=== PATIENT | male | born 1950 ===

== ENCOUNTER 2024-07-31 15:37 | Inpatient (IN) | payer MEDICARE, OTHER ==
[~2024-07-31] VITALS: Ht 188 cm; Wt 75.0 kg
[2024-07-31 18:53] VITALS: BP 142/65
--- NOTE | 2024-07-31 18:53 | NUR ---
ARRIVAL TO PCU patient arrived at 1800 as a direct admit. vital signs stable. tele sinus rhythm 60s. this rn to admit to get information and admit into the system. Md Turner notified of patient arrival. no orders at this time. admit not complete due to not getting in the system and this rn unable to do a full admit, will pass along to maintenance technician 2nd shift. paper work for admit complete and at charge desk.
[2024-07-31] MEDS ORDERED: ChlordiazePOXIDE 25 MG Cap PO PRN (19:30)
[2024-07-31] MEDS ORDERED: NS 1,000 ML IV SCH (19:30)
[2024-07-31] MEDS ORDERED: OxyCODONE 5 mg/Acetamin 325 mg TABLET PO PRN (19:35)
[2024-07-31] MEDS ORDERED: Ondansetron HCl 2 MG / ML 2ML Vial IV PRN (19:35)
[2024-07-31 20:04] LABS: Base Excess Venous -0.7 mmol/L; PCO2 Venous 36.2 mmHg (38-42); pH Blood Venous 7.42 (7.34-7.37)
[2024-07-31 20:14] LABS: BASOPHILS ABSOLUTE AUTO 0.01 K/mm3 (0.00-0.23); BASOPHILS PERCENT AUTO 0 % (0-2); EOSINOPHILS PERCENT AUTO 0 % (0-6); Hematocrit 40.2 % (37.0-53.0); Hemoglobin 13.5 g/dL (13.5-17.5); IMMATURE GRAN ABSOLUTE AUTO 0.03 K/mm3 (0.00-0.10); IMMATURE GRAN PERCENT AUTO 0 % (0-1); LYMPHOCYTES ABSOLUTE AUTO 0.33 K/mm3 (0.84-5.20); LYMPHOCYTES PERCENT AUTO 4 % (21-46); MONOCYTES ABSOLUTE AUTO 0.39 K/mm3 (0.16-1.47); MONOCYTES PERCENT AUTO 5 % (4-13); Mean Corpuscular HGB 35.5 pg (26.0-34.0); Mean Corpuscular HGB Conc 33.6 g/dL (31.5-36.5); Mean Corpuscular Volume 106 fL (80-100); Mean Platelet Volume 10.2 fL (9.1-12.4); NEUTROPHILS ABSOLUTE AUTO 7.98 K/mm3 (1.96-9.15); NEUTROPHILS PERCENT AUTO 91 % (41-73); Platelet Count 129 K/mm3 (150-400); RDW Coefficient Variation 14.1 % (11.7-14.2); RDW Standard Deviation 55.3 fL (35.1-46.3); White Blood Cell Count 8.74 K/mm3 (4.00-11.30)
[2024-07-31 20:42] LABS: Albumin, Blood 1.7 g/dL (3.4-5.0); Albumin/Globulin Ratio 0.3 (0.8-1.8); Bilirubin, Total 0.5 mg/dL (0.1-1.0); Bun/Creatinine Ratio 20.2 (12.0-20.0); Calcium, Blood 8.6 mg/dL (8.5-10.1); Creatinine, Blood 0.89 mg/dL (0.60-1.20); Globulin, Blood 5.3 g/dL (2.2-4.0); Magnesium, Blood 2.3 mg/dL (1.6-2.4); Potassium, Blood 3.6 mmol/L (3.5-5.5)
[2024-07-31] MEDS ORDERED: Docusate Sodium 100 MG Cap PO SCH (21:00)
[2024-07-31] MEDS ORDERED: Lactobacil 2-S.Thermo-Bifido 1 1 Cap PO SCH (21:00)
[2024-07-31 21:08] VITALS: BP 127/65
[2024-08-01] VITALS (7 sets, daily range): BP systolic 92–129; BP diastolic 49–67
[2024-08-01] MEDS ORDERED: Piperacillin/Tazobactam Sod 3.375 GM in NS 100 ML IV SCH
[2024-08-01] MEDS ORDERED: Vancomycin HCL 750 MG in NS 250 ML IV SCH (02:00)
--- NOTE | 2024-08-01 05:28 | NUR ---
SHIFT [place] PT WAS JUST ARRIVING DURING SHIFT CHANGE. DOCTOR IN ROOM DURING NURSE HANDOFF. 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 PTs VSS. ON 2-8L HIFLNC. PT HAS COUGHING FITS AT TIMES THAT TAKE HIM TIME TO RECOVER FROM REQUIRING MORE OXYGEN. PT HAS CRACKLES UPON ASSESSMENT. RT NOTIFIED AND AT BEDSIDE TO ALSO ASSESS PT. CXR COMPLETE DURING SHIFT. VBGs COMPLETE. PTs R FOOT REDRESSED, PICTURES IN CHART. CURRENTLY NWB TO RLE. ON BED REST AT THIS TIME. USING BED DANIELS FOR 1BM. PT ARRIVED WITH BURNS. MINIMAL YELLOW OUTPUT. NO FURTHER QUESTIONS OR CONCERNS AT THIS TIME. WILL CONTINUE WITH PLAN OF CARE AND REPORT TO ONCOMING NURSE.
[2024-08-01] MEDS ORDERED: Thiamine HCl 100 MG Tab PO SCH (09:00)
[2024-08-01] MEDS ORDERED: Folic Acid 1 MG TAB PO SCH (09:00)
[2024-08-01] MEDS ORDERED: Multivitamins 1 Tab PO SCH (09:00)
[2024-08-01] MEDS ORDERED: Rivaroxaban 10 MG Tab PO SCH (09:00)
[2024-08-01] MEDS ORDERED: Fluticasone 0.05% Nasal Spray SCH (10:00)
[2024-08-01 13:50] LABS: Vancomycin, Trough 22.3 ug/mL (5.0-10.0)
[2024-08-01] MEDS ORDERED: Vancomycin HCL 1,000 MG in NS 250 ML IV SCH (20:00)
[2024-08-02 03:10] VITALS: BP 106/58
[2024-08-02 04:44] LABS: BASOPHILS ABSOLUTE AUTO 0.02 K/mm3 (0.00-0.23); BASOPHILS PERCENT AUTO 0 % (0-2); EOSINOPHILS ABSOLUTE AUTO 0.01 K/mm3 (0.00-0.68); EOSINOPHILS PERCENT AUTO 0 % (0-6); Hematocrit 34.5 % (37.0-53.0); Hemoglobin 11.8 g/dL (13.5-17.5); IMMATURE GRAN ABSOLUTE AUTO 0.06 K/mm3 (0.00-0.10); IMMATURE GRAN PERCENT AUTO 1 % (0-1); LYMPHOCYTES PERCENT AUTO 4 % (21-46); MONOCYTES ABSOLUTE AUTO 0.93 K/mm3 (0.16-1.47); MONOCYTES PERCENT AUTO 7 % (4-13); Mean Corpuscular HGB Conc 34.2 g/dL (31.5-36.5); Mean Corpuscular Volume 105 fL (80-100); NEUTROPHILS ABSOLUTE AUTO 11.66 K/mm3 (1.96-9.15); NEUTROPHILS PERCENT AUTO 88 % (41-73); Platelet Count 147 K/mm3 (150-400); RDW Coefficient Variation 14.1 % (11.7-14.2); RDW Standard Deviation 55.4 fL (35.1-46.3); Red Blood Cell Count 3.28 M/mm3 (4.30-5.90); White Blood Cell Count 13.18 K/mm3 (4.00-11.30)
[2024-08-02 05:03] LABS: Bun/Creatinine Ratio 20.9 (12.0-20.0); Calcium, Blood 8.5 mg/dL (8.5-10.1); Creatinine, Blood 0.86 mg/dL (0.60-1.20); Potassium, Blood 3.3 mmol/L (3.5-5.5)
--- NOTE | 2024-08-02 05:28 | NUR ---
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 CONTINUOUS SPO2, SPO2,GREATER THAN 90% ON 7L O2 VIA NC THE MAJORITY OF THE SHIFT, PT NEEDING FREQUENT TIRATION OF O2 TO MAINTAIN SATURATIONS OF GREATER THAN 90%, HIGHEST TITRATION 10 L AND LOWEST 3L. PT COUGHING UP THICK MUCUS/PT GIVEN YANKAUER. CONTINUOUS TELE MONITORING, BP STABLE WITH MAP GREATER THAN 65, CAP REFILL LESS THAN 3S, STRONG PULSES T/O, PT IN SINUS T/O THE NIGHT WITH PAC S 50-70 S RATE, MILD BLE EDEMA. BOWEL TONES PRESENT IN ALL 4Q, ABD SOFT AND NON-TENDER, SMALL INCONTINET SMEARS THAT WERE BROWN IN COLOR. PT REPORTING DIFFICULTY URINATING, PT HAVING INCONTINENT EPISODES THIS SHIFT. RIGHT FOOT DRESSING C/D/I, SEE PHOTOS IN CHART. PT DENES PAIN T/O THIS SHIFT, THIS RN DID NOT NOTICE ANY NON-VERBAL SIGNS OF PAIN. BED LOWEST POSITION, CALL LIGHT IN REACH, AWAITING TO GIVE REPORT TO ONCOMING RN.
[2024-08-02 07:37] VITALS: BP 109/56
[2024-08-02] MEDS ORDERED: Potassium Chloride 20 MEQ TabCR PO ONE (09:00)
--- NOTE | 2024-08-02 10:44 | NUR ---
am note this rn assumed care at 0700. vital signs stable. spo2 >90% on 4-8l nc, patient currently on 8l nc. patient is alert and oriented x4. perrla. patient is able to make needs known and uses call light appropriately. denies pain, chest pain/pressure. patient reports shortness of breath. lung sounds are coarse throughout and respirations in the 30s. patient gi/gu intact. 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 dressing changed this shift. see shift assessmen for further detials. Md Altamirano in to see patient this morning and discussed with Md Altamirano that patient normally has a soft diet and has been coughing when drinking fluids with a straw and that morning medications patient took with applesauce. Speech eval has been ordered and this Rn spoke with speech therapist who will be by today to evaluate patient. Patient has an episode of posible aspiration on drinking soda. patient was drinking from an open lid and began to have a coughing fit afterwards and coughing up dark secretions which match the color of the soda and then clear secretions this rn suctioned out. this rn suctioned patient and encourage patient to continue coughing. this rn called md altamirano to let him know of this episode and patient npo until speech can evaluate.
--- NOTE | 2024-08-02 11:15 | NUR ---
update speech therapist in to work with patient, see speech therapy assessment for further detials. after working with speech plan for patient to be strict NPO including medications. this rn called md altamirano and updated on this information.
[2024-08-02 11:23] VITALS: BP 113/51
[2024-08-02] MEDS ORDERED: Lactated Ringer's 1,000 ML IV SCH (12:00)
--- NOTE | 2024-08-02 12:30 | NUR ---
UPDATE md altamirano updated on respiratory rate and state vbg ordered
[2024-08-02 13:20] LABS: Base Excess Venous 2.6 mmol/L; Bicarbonate Venous 26.5 mmol/L (24.0-30.0)
[2024-08-02 13:21] LABS: PCO2 Venous 37.6 mmHg (38-42); pH Blood Venous 7.46 (7.34-7.37)
--- NOTE | 2024-08-02 13:41 | NUR ---
update this rn spoke with md altamirano in regarding vbg results, no new orders at this time.
[2024-08-02 15:20] VITALS: BP 113/68
[2024-08-02] MEDS ORDERED: Furosemide 10 MG/ML 4ML Vial IV SCH (16:00)
--- NOTE | 2024-08-02 17:32 | NUR ---
shift summary break nurse Reny Griffith RN spoke with MD Banegas in regards to patient lung coleman with crackles and RT recommendation of diuresising patient, orders for fluid to be stopped and lasix given. patient respirations have been tachypnea, rate in the 30s-40s majority of the shift. patient has male purwick in place for better i&os. patient had two bowel movements today that were incontinent. patient had a bed bath done. see previous notes. plan remains up to date.
[2024-08-02 20:31] VITALS: BP 125/62
[2024-08-02 23:28] VITALS: BP 125/58
[2024-08-03] VITALS (7 sets, daily range): BP systolic 131–146; BP diastolic 69–82
--- NOTE | 2024-08-03 06:20 | NUR ---
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 CONTINUOUS SPO2, SPO2,GREATER THAN 90% ON 6L O2 VIA NC THE MAJORITY OF THE SHIFT, RR 20 S WHILE SLEEPING AND 30-40 S WHEN AWAKE/ PT DENIES FEELINGS SOB OR THAT HE IS BREATHING FAST, PT NEEDING FREQUENT TIRATION OF O2 TO MAINTAIN SATURATIONS OF GREATER THAN 90%, HIGHEST TITRATION 10 L AND LOWEST 6L. PT COUGHING UP THICK MUCUS/PT GIVEN YANKAUER. CONTINUOUS TELE MONITORING, BP STABLE WITH MAP GREATER THAN 65, CAP REFILL LESS THAN 3S, STRONG PULSES T/O, PT IN SINUS T/O THE NIGHT WITH PAC S 50-70 S RATE, BLE EDEMA WITH THE RIGHT GREATER THAN THE LEFT. BOWEL TONES PRESENT IN ALL 4Q, ABD SOFT AND NON-TENDER. MALE PUREWICK IN PLACE TO LOW CONTINUOUS SUCTION, URINE PALE YELLOW IN COLOR. RIGHT FOOT DRESSING CHANGED PER ORDERS THIS AM @ APPROX 0440, DRESSING C/D/I. PT DENES PAIN T/O THIS SHIFT, THIS RN DID NOT NOTICE ANY NON-VERBAL SIGNS OF PAIN. BED LOWEST POSITION, CALL LIGHT IN REACH, AWAITING TO GIVE REPORT TO ONCOMING RN.
[2024-08-03 06:58] LABS: BASOPHILS ABSOLUTE AUTO 0.01 K/mm3 (0.00-0.23); BASOPHILS PERCENT AUTO 0 % (0-2); EOSINOPHILS ABSOLUTE AUTO 0.63 K/mm3 (0.00-0.68); EOSINOPHILS PERCENT AUTO 5 % (0-6); Hematocrit 36.4 % (37.0-53.0); Hemoglobin 12.5 g/dL (13.5-17.5); IMMATURE GRAN ABSOLUTE AUTO 0.04 K/mm3 (0.00-0.10); IMMATURE GRAN PERCENT AUTO 0 % (0-1); LYMPHOCYTES ABSOLUTE AUTO 0.63 K/mm3 (0.84-5.20); LYMPHOCYTES PERCENT AUTO 5 % (21-46); MONOCYTES ABSOLUTE AUTO 0.55 K/mm3 (0.16-1.47); MONOCYTES PERCENT AUTO 5 % (4-13); Mean Corpuscular HGB 35.6 pg (26.0-34.0); Mean Corpuscular HGB Conc 34.3 g/dL (31.5-36.5); Mean Corpuscular Volume 104 fL (80-100); Mean Platelet Volume 9.6 fL (9.1-12.4); NEUTROPHILS PERCENT AUTO 84 % (41-73); Platelet Count 111 K/mm3 (150-400); RDW Coefficient Variation 14.2 % (11.7-14.2); RDW Standard Deviation 54.4 fL (35.1-46.3); Red Blood Cell Count 3.51 M/mm3 (4.30-5.90); White Blood Cell Count 11.66 K/mm3 (4.00-11.30)
[2024-08-03 07:24] LABS: Bun/Creatinine Ratio 15.7 (12.0-20.0); Calcium, Blood 8.3 mg/dL (8.5-10.1); Creatinine, Blood 0.83 mg/dL (0.60-1.20); Potassium, Blood 2.8 mmol/L (3.5-5.5)
[2024-08-03 07:26] LABS: Vancomycin, Trough 19.2 ug/mL (5.0-10.0)
[2024-08-03] MEDS ORDERED: NS 250 ML IV PRN (08:25)
--- NOTE | 2024-08-03 08:50 | NUR ---
SPEECH SPEECH IN TO SEE PT. ADVISED TO CONTINUE STRICT NPO, STATED TO RECOMMEND BARIUM SWALLOW STUDY FOR MONDAY, SPEECH NOT AVAILABLE SUNDAYS AND SAME FOR RADIOLOGIST.
[2024-08-03] MEDS ORDERED: Potassium Chloride 40 MEQ in NS 250 ML IV ONE (09:30)
[2024-08-03] MEDS ORDERED: Vancomycin HCL 1,250 MG in NS 250 ML IV SCH (10:00)
[2024-08-03] MEDS ORDERED: Enoxaparin 80 MG/0.8 ML SYR SC SCH ×2 (12:14→23:00)
[2024-08-03 12:58] LABS: Base Excess Venous 10.7 mmol/L; Bicarbonate Venous 33.5 mmol/L (24.0-30.0); PCO2 Venous 38.9 mmHg (38-42)
[2024-08-03 12:59] LABS: pH Blood Venous 7.54 (7.34-7.37)
--- NOTE | 2024-08-03 13:11 | NUR ---
CRITICAL VALUE VBG RESULTS CALLED TO DR MARK, STATED SHE NEEDED MED REC TO BE DONE FOR ANY POSSIBLE MEDS HE COULD BE MISSING. DOC STATED HIS TACHYPNEA MAY BE EXACERBATED BY PAIN, LET DOC KNOW HE IS STRICT NPO PER SPEECH RECOMMENDATIONS. STATED SHE WILL ORDER ONE TIME FENTANYL.
[2024-08-03] MEDS ORDERED: XARELTO20 MG PO (13:29)
[2024-08-03] MEDS ORDERED: OXAYDO5 M3 PO (13:31)
[2024-08-03] MEDS ORDERED: FERSU300 PO (13:31)
[2024-08-03] MEDS ORDERED: FentaNYL Citrate 50 MCG/ML 2 ML Injection IV ONE (14:00)
--- NOTE | 2024-08-03 14:03 | NUR ---
FENTANYL GIVEN IN ATTEMPT TO SLOW BREATHING RATE PER DR MARK. PATIENT CONTINUES TO BREATH 40 RESP/MIN. ABDOMINAL BREATHING, MILD INTERCOSTAL RETRACTIONS NOTED AT THIS TIME.
--- NOTE | 2024-08-03 14:58 | NUR ---
NURSE MONITORING AND ICU NURSE IN ROOM ROUNDING ON PATIENT. BOTH STATED TRANSFER IS NOT APPROPRIATE AT THIS TIME. PATIENT CONTINUES TO BE TACHYPNEIC AT 38 RESP/MIN. WAITING ON CT TO BE DONE.
[2024-08-03] MEDS ORDERED: AcetaZOLAMIDE Sodium 500 MG Vial IV SCH (16:00)
--- NOTE | 2024-08-03 18:11 | NUR ---
SHIFT SUMMARY PATIENT TACHYPNEIC THROUGHOUT SHIFT, EPISODES OF INCREASED WOB AND RETRACTIONS WITH BREATHS. OTHER VSS. CONFUSION INCREASING THROUGHOUT DAY WITH 2 EPISODES OF ATTEMPTING BED EXIT AND PULLING AT LINES, EASILY REDIRECTABLE. CURRENTLY ON 4 LITERS NC, SATING BETWEEN 98-100%. BARRIER CREAM APPLIED TO STEVIE AREA, SEVERAL INCONTINENT BM. USING MALE WICKING SYSTEM, ADEQUATE OUTPUT. NPO FOR ASPIRATION RISK, SEE SPEECH NOTE. SCHEDULED FOR BARIUM SWALLOW STUDY MONDAY. TOLERATING IV ABX WELL. WAITING ON DELIVERY OF DIAMOX. PATIENT IN TRANSPORT CURRENTLY FOR CT PE STUDY.
[2024-08-03] MEDS ORDERED: rOPINIRole HCl 0.25 MG Tab PO SCH (21:00)
[2024-08-04 04:34] VITALS: BP 127/63
[2024-08-04 04:38] LABS: Base Excess Venous 6.3 mmol/L; Bicarbonate Venous 28.7 mmol/L (24.0-30.0); PCO2 Venous 47.7 mmHg (38-42); pH Blood Venous 7.42 (7.34-7.37)
[2024-08-04 04:40] LABS: BASOPHILS ABSOLUTE AUTO 0.01 K/mm3 (0.00-0.23); BASOPHILS PERCENT AUTO 0 % (0-2); EOSINOPHILS ABSOLUTE AUTO 0.66 K/mm3 (0.00-0.68); EOSINOPHILS PERCENT AUTO 6 % (0-6); Hematocrit 38.6 % (37.0-53.0); Hemoglobin 12.8 g/dL (13.5-17.5); IMMATURE GRAN ABSOLUTE AUTO 0.05 K/mm3 (0.00-0.10); IMMATURE GRAN PERCENT AUTO 0 % (0-1); LYMPHOCYTES ABSOLUTE AUTO 0.56 K/mm3 (0.84-5.20); LYMPHOCYTES PERCENT AUTO 5 % (21-46); MONOCYTES ABSOLUTE AUTO 0.45 K/mm3 (0.16-1.47); MONOCYTES PERCENT AUTO 4 % (4-13); Mean Corpuscular HGB 34.9 pg (26.0-34.0); Mean Corpuscular HGB Conc 33.2 g/dL (31.5-36.5); Mean Corpuscular Volume 105 fL (80-100); Mean Platelet Volume 10.4 fL (9.1-12.4); NEUTROPHILS ABSOLUTE AUTO 9.65 K/mm3 (1.96-9.15); NEUTROPHILS PERCENT AUTO 85 % (41-73); Platelet Count 107 K/mm3 (150-400); RDW Coefficient Variation 14.1 % (11.7-14.2); RDW Standard Deviation 55.1 fL (35.1-46.3); Red Blood Cell Count 3.67 M/mm3 (4.30-5.90); White Blood Cell Count 11.38 K/mm3 (4.00-11.30)
[2024-08-04 05:19] LABS: Bun/Creatinine Ratio 14.4 (12.0-20.0); Calcium, Blood 8.7 mg/dL (8.5-10.1); Creatinine, Blood 0.97 mg/dL (0.60-1.20); Free Thyroxine 1.15 ng/dL (0.70-1.60); Potassium, Blood 2.8 mmol/L (3.5-5.5); Thyroid Stimulating Hormone 1.66 uIU/mL (0.360-4.800)
[2024-08-04] MEDS ORDERED: Potassium Chloride 40 MEQ in NS 250 ML IV ONE (06:00)
[2024-08-04] MEDS ORDERED: SPIR25 PO (06:00)
[2024-08-04] MEDS ORDERED: WARF4 PO (06:01)
[2024-08-04] MEDS ORDERED: ENTRESTO 24 MG1 EACH PO (06:01)
[2024-08-04] MEDS ORDERED: ATOR40TA PO (06:01)
[2024-08-04] MEDS ORDERED: FARXIGA10 MG PO (06:03)
[2024-08-04 06:04] LABS: Magnesium, Blood 2.2 mg/dL (1.6-2.4)
[2024-08-04] MEDS ORDERED: OXYC5 PO (06:09)
[2024-08-04] MEDS ORDERED: XARELTO20 MG PO (06:09)
[2024-08-04] MEDS ORDERED: FERSU300 PO (06:10)
--- NOTE | 2024-08-04 06:13 | NUR ---
SHIFT SUMMARY PT A&O X4, PT HAVING INTERMITTENT EPISODES OF CONFUSION BUT STAFF ARE ABLE TO REORIENTED PT / STATING HE HAD TO GO TO THE [facility] STORE AND WAS TRYING TO GET OUT OF BED/ ANOTHER TIME PT THOUGHT HE HAD RED SNEAKER ON AND WAS WANTING THEM OFF, OBEYS COMMANDS, IS SLOW TO RESPOND, VOICE CONTINUES TO BE SOFT AND MUMBLED, PT ANSWERING QUESTIONS APPROPRIATELY, MOVING ALL EXTREMITIES WITH PURPOSE, AMPULATION 07/25 TO THE RIGHT FOOT 2ND AND 3RD METATARSALS/ IS NON-WEIGHT BARING ON THE RIGHT LEG, PT BEEN BED REST ASSITING STAFF WITH ROLLING IN BED FOR Q2 REPOSITING. CONTINUOUS SPO2, SPO2,GREATER THAN 90% ON 2L O2 VIA NC THE MAJORITY OF THE SHIFT, RR 30-40 S/ PT DENIES FEELINGS SOB OR THAT HE IS BREATHING FAST, PT COUGHING UP THICK MUCUS/PT GIVEN YANKAUER. CONTINUOUS TELE MONITORING, BP STABLE WITH MAP GREATER THAN 65, CAP REFILL LESS THAN 3S, STRONG PULSES T/O, PT IN SINUS 80 S, BLE EDEMA WITH THE RIGHT GREATER THAN THE LEFT/LOOKS IMPROVED FROM PREVIOUS SHIFT. BOWEL TONES PRESENT IN ALL 4Q, ABD SOFT AND NON-TENDER, PT HAVING INCONTINMENT BM S. MALE PUREWICK IN PLACE TO LOW CONTINUOUS SUCTION, URINE PALE YELLOW IN COLOR. RIGHT FOOT DRESSING C/D/I. PT DENES PAIN T/O THIS SHIFT, THIS RN DID NOT NOTICE ANY NON-VERBAL SIGNS OF PAIN. BED LOWEST POSITION, CALL LIGHT IN REACH, AWAITING TO GIVE REPORT TO ONCOMING RN.
[2024-08-04 08:03] VITALS: BP 102/70
[2024-08-04] MEDS ORDERED: Potassium Chloride 20 MEQ in NS 90 ML IV ONE (10:00)
[2024-08-04 12:32] VITALS: BP 119/69
[2024-08-04 16:23] VITALS: BP 115/67
[2024-08-04 16:23] LABS: Bun/Creatinine Ratio 14.8 (12.0-20.0); Calcium, Blood 8.4 mg/dL (8.5-10.1); Creatinine, Blood 1.15 mg/dL (0.60-1.20); Potassium, Blood 3.4 mmol/L (3.5-5.5)
--- NOTE | 2024-08-04 17:51 | NUR ---
PT AOX3-4 WITH INTERMITTNET EPISODES OF CONFUSION. HE IS COOPERATIVE AND CALM. HE TRIED TO GET OUT OF BED A COUPLE OF TIMES BUT WAS EASILY REORIENTED AND REDIRECTED TO STAY IN BED. WHILE IN BED HE WAS ADJUSTED BY STAFF EVERY 2 HOURS TO OFFLOAD ANY PRESSURE. HE IS ABLE TO COMMUNICATE VERBALLY BUT HIS VOICE IS SOFT AND WORDS ARE MUMBLED. HE ANSWERS QUESTIONS APPROPRIATELY, HE IS ABLE TO MOVE ALL EXTREMEITIES IN THE BED AND APPEARS TO BE VERY WEAK. HE IS ON CONTINUOUS PULSE OX ON 2L MAINTAING O2 SATS GREATER THAN 90%. THE SALES CLERK FOOD CAME BY AND THOUGHT THE PATIENT MAY HAVE SLEEP APNEA SO HE ORDERED A CPAP DENIES PAIN AND DENIES SOB. RR RANGED FROM 24 TO 28 BREATHS PER MINUTE FOR THE MOST OF THE SHIFT. HIS LUNG SOUNDS ARE CLEAR IN THE UPPER LOBES WITH SOME CRACKLES AND EXPIRATORY WHEEZE IN THE LOWER LOBES. HE HAD POSITIVE BOWEL SOUNDS AND HAD A SMALL SOFT BM TODAY. PT IN SINUS. PUREWICK IN PLACE. RIGHT FOOT DRESSING CHANGED.
[2024-08-04 18:20] LABS: Adenovirus Not Detected (NOT DETECT); Bordetella pertussis Not Detected (NOT DETECT); Chlamydophila pneumoniae Not Detected (NOT DETECT); Coronavirus 229E Not Detected (NOT DETECT); Coronavirus HKU1 Not Detected (NOT DETECT); Coronavirus NL63 Not Detected (NOT DETECT); Coronavirus OC43 Not Detected (NOT DETECT); Human Metapneumovirus Not Detected (NOT DETECT); Human Rhinovirus/Enterovirus Not Detected (NOT DETECT); Influenza A/2009-H1 Not Detected (NOT DETECT); Influenza A/H1 Not Detected (NOT DETECT); Influenza A/H3 Not Detected (NOT DETECT); Influenza B Not Detected (NOT DETECT); Mycoplasma pneumoniae Not Detected (NOT DETECT); Parainfluenza Virus 1 Not Detected (NOT DETECT); Parainfluenza Virus 2 Not Detected (NOT DETECT); Parainfluenza Virus 3 Not Detected (NOT DETECT); Parainfluenza Virus 4 Not Detected (NOT DETECT); Respiratory Syncytial Virus Not Detected (NOT DETECT); SARS-Cov-2 (COVID-19), BioFire Not Detected (NOT DETECT)
--- NOTE | 2024-08-04 19:55 | NUR ---
ASSUMPTION OF CARE ASSUMED PT'S CARE AT 1900,BEDSIDE REPORT COMPLETED.PT APPEARS TO BE SLEEPING,OPENS EYES TO VERBAL COMMAND.CURRENTLY USING THE BIPAP,NO S/S OF RESPIRATORY DISTRESS NOTED.PT DENIES PAIN.PLAN OF CARE REVIEWED.CALL LIGHT AND PT'S ITEMS WITHIN REACH.WILL CONTINUE TO MONITOR.
[2024-08-04 20:08] VITALS: BP 128/66
[2024-08-05 00:11] VITALS: BP 112/81
[2024-08-05 03:36] VITALS: BP 131/59
--- NOTE | 2024-08-05 06:32 | NUR ---
SHIFT SUMMARY PT WAS SWITCHED TO THE BIPAP AT 2100.PT KEPT TAKING THE BIPAP OFF,REQUIRED CONSTANT REMINDER TO KEEP THE BIPAP ON.PT DESATURATE EASILY TO 83% ON RA.CONTINUES TO BE TACHYPNEIC 27-35BPM.PT WIDE AWAKE THIS MORNING AND MENTATION IMPROVED.PT VOICING NEEDS THIS MORNING,STATES THAT HE IS HUNGRY AND NEEDS SOME FOOD.EXPLAINED TO PT THAT HE FAILED THE SWALLOW STUDY AND THAT HE NEEDS FURTHER TESTING TO DETERMINE THE CORRECT CONSISTENCY OF FOOD THAT HE CAN TOLERATE WITHOUT THE RISK OF ASPIRATION.PT REQUESTED THIS AM TO BE SWITCHED TO THE NC.PLACED ON 2L,OXYGEN SATURATION 96%.PT DENIES PAIN,DENIES SOB,DENIES FURTHER NEEDS AT THIS TIME.CALL LIGHT AND PT'S ITEMS WITHIN REACH.WILL GIVE REPORT TO DAYSHIFT NURSE FOR CONTINUITY OF CARE.
[2024-08-05 07:52] VITALS: BP 103/48
[2024-08-05 09:46] LABS: BASOPHILS ABSOLUTE AUTO 0.02 K/mm3 (0.00-0.23); BASOPHILS PERCENT AUTO 0 % (0-2); EOSINOPHILS PERCENT AUTO 6 % (0-6); Hematocrit 39.7 % (37.0-53.0); IMMATURE GRAN ABSOLUTE AUTO 0.04 K/mm3 (0.00-0.10); IMMATURE GRAN PERCENT AUTO 0 % (0-1); LYMPHOCYTES ABSOLUTE AUTO 0.55 K/mm3 (0.84-5.20); LYMPHOCYTES PERCENT AUTO 5 % (21-46); MONOCYTES ABSOLUTE AUTO 0.46 K/mm3 (0.16-1.47); MONOCYTES PERCENT AUTO 5 % (4-13); Mean Corpuscular HGB 34.9 pg (26.0-34.0); Mean Corpuscular HGB Conc 32.7 g/dL (31.5-36.5); Mean Corpuscular Volume 107 fL (80-100); Mean Platelet Volume 9.9 fL (9.1-12.4); NEUTROPHILS ABSOLUTE AUTO 8.64 K/mm3 (1.96-9.15); NEUTROPHILS PERCENT AUTO 84 % (41-73); Platelet Count 158 K/mm3 (150-400); RDW Coefficient Variation 14.1 % (11.7-14.2); RDW Standard Deviation 55.8 fL (35.1-46.3); Red Blood Cell Count 3.72 M/mm3 (4.30-5.90); White Blood Cell Count 10.31 K/mm3 (4.00-11.30)
[2024-08-05 10:07] LABS: Albumin, Blood 2.1 g/dL (3.4-5.0); Albumin/Globulin Ratio 0.4 (0.8-1.8); Bilirubin, Total 0.7 mg/dL (0.1-1.0); Bun/Creatinine Ratio 17.8 (12.0-20.0); Calcium, Blood 8.8 mg/dL (8.5-10.1); Creatinine, Blood 1.07 mg/dL (0.60-1.20); Potassium, Blood 3.1 mmol/L (3.5-5.5); Total Protein, Blood 7.1 g/dL (6.4-8.2)
[2024-08-05 10:14] LABS: Vancomycin, Trough 20.8 ug/mL (5.0-10.0)
[2024-08-05] MEDS ORDERED: Vancomycin HCL 1,000 MG in NS 250 ML IV SCH (11:00)
[2024-08-05 11:36] VITALS: BP 122/65
[2024-08-05] MEDS ORDERED: Dextrose 5% 1,000 ML IV SCH ×2 (13:20→18:30)
[2024-08-05] MEDS ORDERED: AcetaZOLAMIDE Sodium 500 MG Vial IV ONE (14:00)
[2024-08-05 16:16] VITALS: BP 140/70
--- NOTE | 2024-08-05 17:40 | NUR ---
SHIFT SUMMARY; ASSUMED CARE AT 0700. A/A/OX2-3. PARTICIPATES MINIMALLY IN CARE. SLEEPS MOST OF DAY. BARIUM SWALLOW STUDY COMPLETED, PEG TUBE RECOMMENED, PT DECLINES, PALLATIVE CARE UPDATED. 02 INCREASED IN AM TO MAINTAIN SATS >90% TO 6L. LASIX GIVEN PER ORDERS, 02 SATS IMPROVED AND 02 DECREASED TO [address]L [address]. PUGA. D5 AT 75ML, BP STABLE. LARGE OPEN SORE NOTED TO RIGHT HEEL. DR. MARK TO ROOM EVALUATE, PHOTO TAKEN AND PLACED IN CHART. MEPILEX PLACED PER VERBAL ORDER, ABD AND KERLEX DRESSING TO RIGHT FOOT SURGICAL SITE, BRITNEY IN PLACE, INCISION DRY AND NON ODOROUS. CT SCAN DURING SHIFT TODAY. REMAINS NPO PER ST ORDERS, WILL CONTIUE TO MONITOR AND TREAT UNTIL CHANGE OF SHIFT.
[2024-08-05 21:40] VITALS: BP 124/64
[2024-08-06 00:16] VITALS: BP 134/66
[2024-08-06 04:10] VITALS: BP 153/86
[2024-08-06 05:49] LABS: BASOPHILS ABSOLUTE AUTO 0.03 K/mm3 (0.00-0.23); BASOPHILS PERCENT AUTO 0 % (0-2); EOSINOPHILS ABSOLUTE AUTO 0.69 K/mm3 (0.00-0.68); EOSINOPHILS PERCENT AUTO 7 % (0-6); Hematocrit 38.3 % (37.0-53.0); Hemoglobin 12.4 g/dL (13.5-17.5); IMMATURE GRAN ABSOLUTE AUTO 0.03 K/mm3 (0.00-0.10); IMMATURE GRAN PERCENT AUTO 0 % (0-1); LYMPHOCYTES ABSOLUTE AUTO 0.52 K/mm3 (0.84-5.20); LYMPHOCYTES PERCENT AUTO 5 % (21-46); MONOCYTES ABSOLUTE AUTO 0.57 K/mm3 (0.16-1.47); MONOCYTES PERCENT AUTO 6 % (4-13); Mean Corpuscular HGB 34.4 pg (26.0-34.0); Mean Corpuscular HGB Conc 32.4 g/dL (31.5-36.5); Mean Corpuscular Volume 106 fL (80-100); Mean Platelet Volume 10.1 fL (9.1-12.4); NEUTROPHILS ABSOLUTE AUTO 7.78 K/mm3 (1.96-9.15); NEUTROPHILS PERCENT AUTO 81 % (41-73); Platelet Count 197 K/mm3 (150-400); RDW Coefficient Variation 14.2 % (11.7-14.2); RDW Standard Deviation 56.1 fL (35.1-46.3); White Blood Cell Count 9.62 K/mm3 (4.00-11.30)
[2024-08-06 06:19] LABS: Albumin, Blood 2.1 g/dL (3.4-5.0); Albumin/Globulin Ratio 0.4 (0.8-1.8); Bilirubin, Total 0.7 mg/dL (0.1-1.0); Bun/Creatinine Ratio 14.3 (12.0-20.0); Calcium, Blood 8.4 mg/dL (8.5-10.1); Creatinine, Blood 1.05 mg/dL (0.60-1.20); Globulin, Blood 5.1 g/dL (2.2-4.0); Potassium, Blood 2.8 mmol/L (3.5-5.5); Total Protein, Blood 7.2 g/dL (6.4-8.2)
--- NOTE | 2024-08-06 07:30 | NUR ---
SHIFT SUMMARY: PT IS A&O TO SELF AND PLACE. PT SLEPT MUCH OF THIS SHIFT. NO ACUTE CHANGES OR EVENTS THIS SHIFT. VSS ON 2L HFNC. PT FREQUENTLY NEEDS REMINDERS THAT HE NEEDS TO KEEP OXYGEN ON. SR IN THE 60'S. DENIES PAIN. NOOB THIS SHIFT, PT REPOSITIONS INDEPENDENTLY IN BED. DRESSING TO RIGHT FOOT, C/D/I. PT HAS BILAT HEEL PROTECTORS IN PLACE. WICKING SYSTEM DRAINING LARGE AMOUNTS OF CLEAR, YELLOW URINE. NO BM THIS SHIFT. BRIEF IN PLACE. BED IN LOWEST POSITION, CALL LIGHT WITHIN REACH. BED ALARM SET FOR PT'S SAFETY. FREQUENT ROUNDING COMPLETED. REPORT GIVEN TO ONCOMING NURSE.
[2024-08-06 07:49] VITALS: BP 120/65
[2024-08-06] MEDS ORDERED: Potassium Chloride 20 MEQ in NS 90 ML IV SCH (09:30)
[2024-08-06 10:37] VITALS: BP 97/66
[2024-08-06] MEDS ORDERED: Dexamethasone Sod Phos 10 MG/ML 1ML VIAL IV SCH (12:00)
[2024-08-06 17:00] VITALS: BP 123/64
--- NOTE | 2024-08-06 18:36 | NUR ---
SHIFT SUMMARY; ASSUMED CARE AT 0700. MORE ALERT THAN PREVIOUS SHIFT. A/A/OX2-3. MOVES AROUND IN BED MORE THAN PREVIOUS. RE-EVALUATED BY SPEECH, CONTINUED NPO. CONTINUES TO DECLINE PEG TUBE. DR. MARK DISCUSSED CT RESULTS WITH PT. VSS, D5 GTT 30ML/HR. ANTIBIOTICS PER EMAR. GIVES PERMISSION TO SPEAK WITH BROTHER MOSHE WHO IS CLOSEST RELATIVE TO UPDATE ON CARE. PURWICK IN PLACE WITH GOOD OUTPUT. ORAL CARE FREQUENTLY WITH MOUTH MOISTURIZER. 1.5L 02 VIA ID. WILL CONTINUE TO MONITOR AND TREAT UNTIL REPORT TO NOC SHIFT RN.
[2024-08-06 20:19] VITALS: BP 153/74
[2024-08-06] MEDS ORDERED: Bisacodyl 10 MG Supp PR PRN (21:35)
[2024-08-06] MEDS ORDERED: LORazepam 2 MG/ML 1ML Injection IV PRN (21:40)
[2024-08-06] MEDS ORDERED: Thiamine HCl 100 MG in NS 50 ML IV SCH (21:40)
[2024-08-07 00:34] VITALS: BP 155/85
[2024-08-07 04:15] VITALS: BP 159/69
[2024-08-07 05:21] LABS: BASOPHILS PERCENT AUTO 0 % (0-2); EOSINOPHILS PERCENT AUTO 0 % (0-6); Hematocrit 38.1 % (37.0-53.0); Hemoglobin 12.4 g/dL (13.5-17.5); IMMATURE GRAN ABSOLUTE AUTO 0.02 K/mm3 (0.00-0.10); IMMATURE GRAN PERCENT AUTO 1 % (0-1); LYMPHOCYTES ABSOLUTE AUTO 0.31 K/mm3 (0.84-5.20); LYMPHOCYTES PERCENT AUTO 7 % (21-46); MONOCYTES ABSOLUTE AUTO 0.05 K/mm3 (0.16-1.47); MONOCYTES PERCENT AUTO 1 % (4-13); Mean Corpuscular HGB 34.9 pg (26.0-34.0); Mean Corpuscular HGB Conc 32.5 g/dL (31.5-36.5); Mean Corpuscular Volume 107 fL (80-100); Mean Platelet Volume 10.7 fL (9.1-12.4); NEUTROPHILS ABSOLUTE AUTO 4.04 K/mm3 (1.96-9.15); NEUTROPHILS PERCENT AUTO 91 % (41-73); Platelet Count 169 K/mm3 (150-400); RDW Coefficient Variation 14.1 % (11.7-14.2); RDW Standard Deviation 55.8 fL (35.1-46.3); Red Blood Cell Count 3.55 M/mm3 (4.30-5.90); White Blood Cell Count 4.42 K/mm3 (4.00-11.30)
[2024-08-07 06:40] LABS: Bun/Creatinine Ratio 19.4 (12.0-20.0); Calcium, Blood 8.4 mg/dL (8.5-10.1); Creatinine, Blood 0.93 mg/dL (0.60-1.20); Potassium, Blood 3.8 mmol/L (3.5-5.5)
--- NOTE | 2024-08-07 06:52 | NUR ---
SHIFT SUMMARY: PT IS A&Ox3. NO ACUTE CHANGES OR EVENTS THIS SHIFT. VSS ON 1.5L HFNC. PT FREQUENTLY NEEDS REMINDERS THAT HE NEEDS TO KEEP OXYGEN ON. SB-SR IN THE 50'S -70'S. DENIES PAIN. PT REMAINS STRICT NPO. D5 GTT INFUSING PER ORDERS. NOOB THIS SHIFT, PT REPOSITIONS INDEPENDENTLY IN BED. DRESSING TO RIGHT FOOT, C/D/I. WICKING SYSTEM DRAINING ADEQUATE AMOUNTS OF HENRI COLORED URINE. PT DID REMOVE THIS, AND WAS INCONTINENT. NO BM THIS SHIFT. BRIEF IN PLACE. BED IN LOWEST POSITION, CALL LIGHT WITHIN REACH. BED ALARM SET FOR PT'S SAFETY. PT KEEPS SAYING THAT HE NEEDS TO GET OOB, UNSURE WHY. FREQUENT ROUNDING COMPLETED. REPORT GIVEN TO ONCOMING NURSE.
[2024-08-07] MEDS ORDERED: Morphine Sulfate 20 MG/1ML 1 ML Oral Syringe PO PRN (09:40)
[2024-08-07] MEDS ORDERED: LORazepam 2 MG/ML 1ML Injection IV PRN (09:45)
[2024-08-07 11:39] VITALS: BP 143/70
[2024-08-07 15:17] VITALS: BP 108/60
[2024-08-07 18:10] LABS: ANTI-NUCLEAR AB ANA,IGG ELISA None Detected (None Detected)
--- NOTE | 2024-08-07 18:32 | NUR ---
SHIFT SUMMARY; ASSUMED CARE AT 0700. A/A/OX4, SHORTLY AFTER SHIFT CHANGE TELLS THIS RN HE CAN NO LONGER GO WITHOUT FOOD OR WATER. DISCUSSED WITH PT. PT VERBALIZES HE UNDERSTANDS THE APSIRATION RISKS AND IS OK WITH IT. VERBALIZES HE KNOWS WHAT HOSPICE IS HE HAS BEEN ON IT BEFORE. HE STATES HE WOULD LIKE TO USE HOSPICE HE IS NOT WANTING CANCER TREATMENT. HE FURTHER STATES HE WOULD LIKE TO BE AT A FACILITY IN [place] WHERE HE BEEN LIVING. DR. MARK UPDATED AND TO ROOM TO SPEAK WITH PT. SMALL SIPS OF WATER AND BITES OF APPLESAUCE CONSISTANCY OK PER DR. MARK. WATER PROVIDED WITH SUPERVISION, SMALL COUGH AFTER DRINKING WITH NO DESATURATIONS. JELLO TOLERATED WELL WITH ASSISTANCE. D5 INFUSING AT 30ML/HR. PALLATIVE CARE AND CARE MANAGEMENT MET WITH PT TODAY TO DISCUSS HOSPICE AND CARE FACILITY OPTIONS. STATUS CHANGED TO DNR WITH VERBAL AGREEMENT FROM PATIENT. ASPIRATION RISK WILL BE CLOSELY MONITORED AND PRECAUTIONS TAKEN. ORAL CARE AND SUCTION NEEDED, VSS, DRESSING TO RIGHT FOOT CHANGED, BILATERAL BOOTIES IN PLACE, MEPILEX TO RIGHT HEEL C/D/I. RIGHT FOOT SURGICAL SITE WITH BRITNEY AND SUTURES DRY AND NON DRAINING. WILL CONTINUE TO MONITOR AND TREAT UNTIL REPORT GIVEN TO NOC SHIFT RN.
[2024-08-07 19:45] VITALS: BP 130/59
[2024-08-08 00:01] VITALS: BP 136/71
[2024-08-08 04:20] VITALS: BP 123/63
--- NOTE | 2024-08-08 06:22 | NUR ---
SHIFT SUMMARY PT A&Ox3. SOFT SPEACH AND PT WILL COMMUNICATE THROUGH HAND GUESTURES AT TIMES. NO C/O PAIN. PT HAS BEEN SINUS WOLF IN THE 50's AND SATING >95% ON 2L OF OXYGEN. DEXTRSE 5% INFUSING @ 30ml/hr. PT SOMNOLENT AND SLEPT MOST OF THE NIGHT. MALE PURWICK IN PLACE, DRAINING HENRI URINE. BILATERAL HEAL PROTECTORS IN PLACE. RIGHT FOOT INSISION DRY WITH NO DRAINAGE OR ODOR PRESENT, OPEN TO AIR. VSS. PT TURNS IND IN BED. BED ALARM ON. BED IN LOWEST POSITION AND CALL LIGHT IN REACH.
--- NOTE | 2024-08-08 09:51 | NUR ---
Update Pt A&O to self, place & year. Pt slow to respond & speech is soft & hoarse. Pt VSS. Spo2 > 92% on 2L NC. Monitor showing SB-SR, HR 50s-60s. D5 gtt infusing per orders. Pt w/ strict NPO orders. MD Smith to bedside this AM for discussion w/ pt. discussion w/ pt resulting w/ plan for comfort care & okay to give pt whatever pt wants to eat & drink.
--- NOTE | 2024-08-08 13:16 | NUR ---
COMFORT CARE / TRANSFER TO MEDICAL PT CONTINUES TO BE A&O X3. PT COMFORT CARE STATUS. TELEMETRY DCd. PT WEARING NC PER PT PREFERENCE. REPORT GIVEN TO ACCEPTING MEDICAL FLOOR RN. PT REQUESTING BROTHER LILLIAM NOT BE UPDATED AT THIS TIME, PT STATING "IT'S A LONG STORY." WHEN NURSE INQUIRING WHY.
--- NOTE | 2024-08-08 14:06 | NUR ---
PATIENT TRANSITIONED TO COMFORT CARE THIS MORNING. DISCUSSED WITH DR. MONSIVAIS. PLACED ORDERS. DISCUSSED WITH PT AND BEDSIDE RN.
--- NOTE | 2024-08-08 17:28 | NUR ---
NO CHANGES SINCE PT WAS TRANSFERED FROM PCU. PT RESTING NO QUESTIONS AND CONCERNS
--- NOTE | 2024-08-09 04:59 | NUR ---
SHIFT SUMMARY PT ON COMFORT CARE. SLEPT LONG INTERVALS THROUGH THE NIGHT, ALTHOUGH RESTLESS IN HIS SLEEP. DENIES PAIN. PT EATING JELLO AND DRINKING ENSURE/MILK WITH SUPERVISION. SOME COUGHING NOTED WITH PO INTAKE, BUT NO RESPIRATORY DISTRESS. MALE PUREWICK IN PLACE. MEPELEX INTACT TO RIGHT HEEL, HEEL PROTECTORS ON BILATERALLY. INCISION TO RIGHT FOOT POST ANESTHESIA ROOM NURSE WITH BRITNEY. BED ALARM ON, BED IN LOWEST POSITION, CALL LIGHT WITHIN REACH, SIDERAILS UP X2.
--- NOTE | 2024-08-09 14:00 | NUR ---
ASSUMED CARE OF PT. FLAT AFFECT BUT COOPERATIVE WITH CARE, PT STATES HE HAS NO PAIN AND IS COMFORTABLE SITTING UP IN BED. I ENC PT TO REMAIN SITTING UP AT 90% BECAUSE HE IS AT RISK FOR ASPIRATION. PT UNDERSTANDS AND IS CONSISTENCLY CHOKING ON ALL FOOD AND DRINKS. PT IS ON COMFORT CARE AND HAS REQUESTED TO CONTINUE EATING AND DRINKING. PLAN FOR TRANSFER TO [place] WHEN CARE IS AVAILABLE
[2024-08-09] MEDS ORDERED: dexAMETHasone 4 MG TAB PO SCH (17:00)
--- NOTE | 2024-08-10 00:45 | NUR ---
ASSUMED CARE OF PT. PT LYING IN BED, OCCASIONAL PRODUCTIVE COUGH. PT REQUESTS LIGHTS TO BE LEFT ON - OTHERWISE DENIES ANY REQUESTS. FLUIDS AT BEDSIDE. OVERBED TABLE WITHIN REACH. PT IS COMFORT CARE.
--- NOTE | 2024-08-10 06:02 | NUR ---
SHIFT SUMMARY - NO ACUTE CHANGES SINCE I ASSUMED CARE THIS MORNING. PT TURNS SELF IN BED INDEPENDENTLY. PT IS ABLE TO FEED HIMSELF. PT ATE JELLO AND DRANK PO FLUIDS WITHOUT ASSISTANCE. PT HAS AN OCCASIONAL PRODUCTIVE COUGH. BILATERAL FEET IN BOOTIES. RIGHT FOOT WITH BRITNEY - CD&I. PT IS OCCASIONALLY HALLUCINATING - POINTS UP TO THE CEILING AND ASKS TO HAVE THE LIGHT TURNED ON - NO LIGHT WHERE PT IS POINTING. ALL LIGHTS ON IN THE ROOM PER PATIENT REQUEST. PT YELLS OUT, AND OCCASIONALLY USES THE CALL LIGHT. PO FLUIDS AT BEDSIDE. BED IN LOW POSITION.
--- NOTE | 2024-08-10 11:19 | NUR ---
ASSUMED CARE OF PT. PT DOING WELL TODAY IS CONFUSED AT TIME BUT IS ABLE TO MAKE NEEDS KNOWN AND REORIENTED EASILY. PT HAS CONT TO BE VERY PLEASENT AND COOPERATIVE WITH CARE. PT TO BE EVALUATED TODAY FOR POSSIBLE TRANSFER.
--- NOTE | 2024-08-11 06:24 | NUR ---
PT STABLE THROUGHOUT SHIFT. PT DENIES PAIN OR DYSPNEA. PT IS COOPERATIVE WITH CARE AND PLEASANT. SPEECH IS MUMBLED BUT PT IS ABLE TO MAKE NEEDS KNOWN. PT DECLINES GOWN AND USES MINIMAL BLANKETS. PT IS ABLE TO REPOSITION SELF FOR COMFORT SOMEWHAT AND HAS BEEN REPOSITIONED HIGHER IN BED FREQUENTLY HIS FEET WILL BE UP AGAINST FOOT-BOARD. PT INTERMITTNELY WEARS HIS O2 CANNULA. MALE PUREWICK IN PLACE AND HAS HAD GOOD URINARY OUTPUT. PT DOES COUGH WHEN SWALLOWING THIN LIQUIDS BUT IS ABLE TO CLEAR AIRWAY WELL.
[2024-08-11] MEDS ORDERED: Miconazole Nitrate 2% 85 GM PWD TOP PRN (10:20)
--- NOTE | 2024-08-11 18:08 | NUR ---
assumed care of pt uneventful day, no change in condition pt forgetful at times but very pleasent and cooperative with care, pt using call light appropriatly and making needs known. pt has had no c/o pain and shows no distress. changed multiple times powder applies to ozzy
--- NOTE | 2024-08-12 05:37 | NUR ---
AAOX2, PERSON AND PLACE. COMFORT CARE MELANOMA WITH METS TO BRAIN. OXYGEN PRN PT ALLOWS 2l. BRIEFS CHANGED PRN. SUTURES IN PLACE ON R FOOT, ABSENT R2ND AND 3RD DIGIT. NO ACUTE NEEDS OVERNIGHT, DENIES PAIN.
[2024-08-12] MEDS ORDERED: Dexamethasone 2 MG Tab PO SCH (17:00)
--- NOTE | 2024-08-12 19:48 | NUR ---
SHIFT SUMMARY PT A&OX3-4, PT HAS SLOW SPEECH. PT ADMITTED DUE TO RESPIRATORY FAILURE. PT ON COMFORT CARE. COMFORT CARE ASSESSMENTS COMPLETED. PT ON ROOM AIR. NO TELE. PT TURNED Q2 HRS. PT REPORTS NO PAIN. PT IN BED, BED IN LOWEST POSITION, CALL LIGHT IN REACH. WOUND CARE COMPLETED, CLEANED AND DRY HEEL, APPLIED NEW MEPILEX. CLEANED AND DRIED BOTTOM OF FOOT, WITH WOUND CARE SPRAY AND 4X4 GAUZE APPLIED ABD PAD AND WRAPPED FOOT IN KERLEX. PT TOLERATED WOUND CARE,
--- NOTE | 2024-08-13 05:12 | NUR ---
AAOX2, HAS TROUBLE FINDING WORDS. RA. CONDOM CATH IN PLACE, DRAINING WITHOUT DIFFICULTY. REPOSITIONED THROUGHOUT THE NIGHT PRN. DENIES PAIN AND NO ACUTE NEEDS OVERNIGHT
--- NOTE | 2024-08-13 19:24 | NUR ---
SHIFT SUMMARY PATIENT DENIES PAIN THROUGHOUT SHIFT. V/O RECIEVD FROM DR CARVALHO TO REMOVE SUTURES AND BRITNEY. PATIENT PREMEDICATED PRIOR TO PROCEDURE FOR POTENTIAL PAIN. WELL TOLERATED. WOUND BED AFTER SUTURES AND BRITNEY REMOVED FROM LARGE SCABBED OVER AREA. INCSION IS NOT FULLY CLOSED AT THIS TIME, UNABLE TO VISUALIZE UNTIL AFTER REMOVAL OF SUTURES AND STITCHES. 90%WOUND BED BEEFY RED, 10% IS GREYISH. DR CARVALHO NOTIFIED AND HE ORDERED PODIATRY CONSULT FOR TOMORROW. PATIENT IS RESTING COMFORTABLE IN BED THROUGHOUT SHIFT AND ABLE TO MAKE NEEDS KNOWN.
--- NOTE | 2024-08-14 02:48 | NUR ---
SHIFT SUMMARY/COMFORT CARE NOTE: PT IS A/O X2-3, CONFUSED, SLOW SPEECH. REQUESTING LUNCH @0200. OFFERED FOOD BUT PT DENIED THE NEED OF. PT DENIES PAIN AND DISCOMFORT DURING THIS SHIFT. PUREWICK DRAINING TEA COLOR URINE. HOB>45 DEGREES. PT IS ON RA. RR EVEN, UNLABORED. NO ACUTE CHANGES OR EVENTS DURING THIS SHIFT. BED AT THE LOWEST POSITION, CALL LIGHT WITHIN REACH. PT IS ABLE TO MAKE HIS NEEDS KNOWN, USES CALL LIGHT APPROPRIATELY. BED ALARM FOR SAFETY.
--- NOTE | 2024-08-14 14:01 | NUR ---
PATIENT REFUSING TO EAT OR DRINK REST OF TODAY AND TOMORROW UNTIL HE LEAVES. HE STATES NO MORE PILLS WELL. HE IS STILL AGREABLE TO SEE PODIATRY TODAY.
--- NOTE | 2024-08-14 18:04 | NUR ---
SHIFT SUMMARY QUINTON DENIES ANY PAIN THRHOUGHOUT SHIFT. HE IS VERBALLY COMMUNICATING HIS WISHES WITH STAFF AND MADE DECISION BEFORE LUNCH TO NO LONGER HAVE ANY FOOD OR DRINK OR MEDICATIONS AT THIS TIME. FREQUENT ROUNDING PROVIDED AND COMMUNICATION PROVIDED REGARDING PLANS TO DISCHARGE TOMORROW AND TO LEAVE AT 1230 WITH BY [facility] TRANSPORT TO SNF IN [place]. BED IN LOW POSITION, PATIENT DOES NOT USE CALL LIGHT OFTEN.
--- NOTE | 2024-08-15 03:03 | NUR ---
SHIFT SUMMARY/COMFORT CARE NOTE: PT IS A/O X2-3. PT REPORTED HE IS NOT GOING TO TAKE ANY MEDICATIONS OR EAT ANY LONGER. PT USING CALL LIGHT OFTEN T/O THIS SHIFT, HAS QUESTIONS REGARDING THE TRANSPORT AND DISCHARGE TIME FOR TODAY. CARE PROVIDED. SAFETY ASSURED. BED ALARM ON. BED AT THE LOWEST POSITION, CALL LIGHT W/I REACH. PT IS ABLE TO MAKE HIS NEEDS KNOWN. PT DENIES PAIN AND DISCOMFORT DURING THIS SHIFT.
--- NOTE | 2024-08-15 11:26 | NUR ---
PATIENT REFUSED WOUND CARE
[2024-08-15] MEDS ORDERED: MORP20L SL (13:37)
[2024-08-15] MEDS ORDERED: DEXA1 PO (13:37)
[2024-08-15] MEDS ORDERED: MICONAZOLE NIT130 GM TOP (13:39)
[2024-08-15] MEDS ORDERED: Percocet 5-3251 EACH PO (13:40)
--- NOTE | 2024-08-15 15:43 | NUR ---
DISCHARGE NOTE: MEDICAL TRANSPORT VIA WHEELCHAIR ARRIVED FOR THE PATIENT; WITH 2 PERSON ASSIST WAS ABLE TO GET THE PATIENT INTO THE WHEELCHAIR. PATIENT COLLECTED HIS BELONGINGS, WAS DRESSED, AND PAPERWORK GIVEN TO MEDICAL TRANSPORTER. NO SIGNS OR SYMPTOMS OF DISTRESS WITH DISCHARGE,
== END 2024-08-15 15:30 | DRG 177 ==
LOC: PCU 15:37 → MEDS 18:23 → ENPENDDIS 08-15 13:03 → MEDS 08-15 15:30
PROVIDERS: Internal Medicine; Internal Medicine Critical Care Medicine; Nurse Practitioner Acute Care; ADMIT Family Medicine
PROC: 5A0935A Assistance with Respiratory Ventilation, Less than 24 Consecutive Hours, High Flow/Velocity Cannula (ICD-10-PCS; 2024-08-01)
PROC: 5A09357 Assistance with Respiratory Ventilation, Less than 24 Consecutive Hours, Continuous Positive Airway Pressure (ICD-10-PCS; principal; 2024-08-04)
PROC: HZ2ZZZZ Detoxification Services for Substance Abuse Treatment (ICD-10-PCS; 2024-08-04)
DX: J69.0 Pneumonitis due to inhalation of food and vomit (principal); G92.8 Other toxic encephalopathy; J96.01 Acute respiratory failure with hypoxia; G93.6 Cerebral edema; F10.239 Alcohol dependence with withdrawal, unspecified; M86.8X7 Other osteomyelitis, ankle and foot; E87.3 Alkalosis; C49.9 Malignant neoplasm of connective and soft tissue, unspecified; C79.31 Secondary malignant neoplasm of brain; J15.9 Unspecified bacterial pneumonia; G62.1 Alcoholic polyneuropathy; E87.6 Hypokalemia; J84.10 Pulmonary fibrosis, unspecified; Z51.5 Encounter for palliative care; Z86.718 Personal history of other venous thrombosis and embolism; Z86.711 Personal history of pulmonary embolism; I48.0 Paroxysmal atrial fibrillation; Z86.16 Personal history of COVID-19; Z89.421 Acquired absence of other right toe(s); Z79.01 Long term (current) use of anticoagulants; Z79.899 Other long term (current) drug therapy; Z79.2 Long term (current) use of antibiotics; Z87.19 Personal history of other diseases of the digestive system; Z79.891 Long term (current) use of opiate analgesic; Z87.891 Personal history of nicotine dependence
CPT/HCPCS: 0202U; 36415; 70470; 70551; 71045; 71260; 74230; 80048; 80053; 80202; 82140; 82803; 83036; 83615; 83735; 83880; 84145; 84295; 84439; 84443; 85025; 85651; 86038; 86140; 92526; 92610; 92611; 93306; 94660; 94760; 94762; 97110; 97162; 97530; A9270; C1751; J1100; J1120; J1650; J1940; J2543; J3010; J3370; J3411; J3480; J7050; J7070; J7120; Q9967